=== PATIENT | female | born 1975 | race Caucasian/White ===

== ENCOUNTER 2019-11-19 22:48 | Emergency (ER) | payer OTHER, SELFPAY ==
[2019-11-19 22:52] VITALS: BP 145/88; PULSE 91; RESP 18; TEMP 36.4; O2SAT 99
--- NOTE | 2019-11-20 00:50 | ED.EYEPROB ---
HPI - Eye Problem General Chief complaint: Eye Problems Stated complaint: slept in contact eye disfomfort. Time Seen by Provider: 11/20/19 00:18 Source: patient Mode of arrival: ambulatory Limitations: no limitations History of Present Illness HPI Narrative: This patient is a 44 year old female who presents for evaluation of left eye irritation. She states she wears disposable contacts and she fell asleep in her contacts on night. On Thursday she states her eye felt gritty at first so she took them out. She wore her contacts again later on Thursday and she slept in them again. She reports her left eye today is red and it feels more irritated. she denies eye pain or blurred vision. Her tetanus is up to date. Related Data Home Medications Medication Instructions Recorded Confirmed lansoprazole 15 mg capsule,delayed 15 mg PO DAILY 02/07/19 release Allergies Allergy/AdvReac Type Severity Reaction Status Date / Time shellfish derived Allergy Unknown Unknown Verified 11/19/19 22:54 [place] [facility] SWELLING, Uncoded 07/28/19 09:46 DIARRHEA, ABD PAIN [place] [facility] ABD PAIN, Uncoded 07/28/19 09:46 NAUSEA/VOMITING NKDA Allergy Unknown Uncoded 11/19/19 22:54 Review of Systems Review of Systems: All systems reviewed & are unremarkable except as noted in HPI and below Constitutional: Constitutional: Denies chills and Denies fever(s) PMFSH Past Medical History Medical History Anemia Arthritis Bronchitis Chronic anemia Chronic migraine Elevated liver enzymes Epistaxis GERD (gastroesophageal reflux disease) GI bleed Hiatal hernia Hx of psoriasis Hypothyroid IBS (irritable bowel syndrome) depression Rectal polyp Seasonal allergies Spontaneous Toe fracture Ulcer Surgical History Surgical History H/O dilation and curettage History of hysterectomy Hx of section x5 Hx of cholecystectomy Family History Family History (Updated 09/10/16 @ 09:00 by DOCTOR UNKNOWN) Mother Family history of thyroid disease Family history of chronic obstructive pulmonary disease Family history of emphysema Father Family history of mental disorder Family history of epilepsy Hypertension Family history of diabetes mellitus in first degree relative Diabetes mellitus Grandparent Hypertension, Onset Age: 82 Diabetes mellitus Social History Social History (Updated 03/03/19 @ 01:28 by Ayala Liriano) Smoking status: Never smoker Second hand tobacco smoke exposure: Yes Alcohol intake: current Gender identity (if verbalized by the patient): Female Exam Const: General: no acute distress and alert Orientation/consciousness: patient oriented x3 HENMT: Head: normocephalic and atraumatic Face and sinus: face symmetric Eyes: Conjunctivae: conjunctival abnormality left conjunctival injection Cornea: corneas abnormal and fluorescein used (small punctate areas of uptake periphery of cornea.) Pupils: Equal, round and reactive pupils present EOM: EOMs intact bilaterally and EOM abnormal Direct Ophthalmoscopy: no photophobia Neck: Neck: normal visual inspection Resp: Effort & Inspection: normal respiratory effort Skin: Rashes: no rashes Neuro: General: patient oriented x3 and moves all extremities Course Vital Signs Vital signs: Vital Signs Temperature 97.6 F 11/19/19 22:52 Pulse Rate 91 11/19/19 22:52 Respiratory Rate 18 11/19/19 22:52 Blood Pressure 145/88 H 11/19/19 22:52 Pulse Oximetry 99 11/19/19 22:52 Temperature 98.6 F 11/20/19 01:08 Pulse Rate 87 11/20/19 01:08 Respiratory Rate 16 11/20/19 01:08 Blood Pressure 141/89 H 11/20/19 01:08 Pulse Oximetry 98 11/20/19 01:08 Discharge Plan Discharge Clinical Impression: Corneal abrasion of left eye
[2019-11-20 01:08] VITALS: BP 141/89; PULSE 87; RESP 16; TEMP 37; O2SAT 98
== END 2019-11-20 01:09 | disposition home or self-care (01) ==
PROVIDERS: Emergency Provider General Practice; PCP Internal Medicine
DX: H18.822 Corneal disorder due to contact lens, left eye (principal); M19.90 Unspecified osteoarthritis, unspecified site; K21.9 Gastro-esophageal reflux disease without esophagitis; E03.9 Hypothyroidism, unspecified; Z86.2 Personal history of diseases of the blood and blood-forming organs and certain disorders involving the immune mechanism
CPT/HCPCS: 99283; A9270

== ENCOUNTER 2021-08-21 10:11 | Outpatient (CLI) | payer OTHER, SELFPAY ==
[2021-08-21 20:19] LABS: Eosinophils Absolute Auto 0.1 K/mm3 (0-0.3); Hematocrit 39.8 % (37.0-47.0); Hemoglobin 11.7 g/dL (12.0-15.0); Immature Granulocyte Absolute 0.01 K/mm3 (0.00-0.031); Immature Granulocyte Percent A 0.2 % (0-0.5); Lymphocytes Absolute Auto 1.06 K/mm3 (0.9-3.2); Lymphocytes Percent Auto 25.9 % (18.3-44.2); Mean Corpuscular HGB Conc 29.4 g/dl (32-36); Mean Corpuscular Hemoglobin 26.4 pg (26-34); Mean Corpuscular Volume 89.8 fl (80-100); Mean Platelet Volume 9.3 fl (7.4-10.4); Monocytes Absolute Auto 0.2 K/mm3 (0.1-0.6); Monocytes Percent Auto 5.9 % (2.6-8.5); Neutrophils Absolute Auto 2.7 K/mm3 (1.3-6.7); Platelet Count Result 206 k/mm3 (150-375); Red Blood Count 4.43 M/mm3 (4.2-5.4); Red Cell Distribution Width 17.4 % (11.5-14.5); White Blood Count 4.1 K/mm3 (4.5-10.0)
[2021-08-21 20:23] LABS: Iron 61 ug/dL (37-170)
[2021-08-21 20:27] LABS: Alanine Aminotransferase 20 U/L (6-35); Albumin Level 4.3 g/dL (3.5-5.1); Alkaline Phosphatase 147 U/L (38-126); Anion Gap 6 mmol/L (8-16); Aspartate Amino Transferase 27 U/L (14-36); Bilirubin,Total 0.7 mg/dL (0.2-1.3); Blood Urea Nitrogen 12 mg/dL (7-17); Calcium 8.8 mg/dL (8.4-10.2); Carbon Dioxide 30 mmol/L (22-30); Chloride 103 mmol/L (98-107); Cholesterol 145 mg/dL (0-200); Estimated Glomerular Filt Rate > 60; Glucose 96 mg/dL (65-110); HDL Direct 40 mg/dL; Sodium 139 mmol/L (137-145); Triglycerides 143 mg/dL (<150)
[2021-08-21 20:35] LABS: Percent Iron Saturation 16 % (20-50)
[2021-08-21 20:38] LABS: LDL Cholesterol Direct 75 mg/dL
[2021-08-21 20:40] LABS: Hypochromasia 1+ (NORMAL); Ovalocytes 1+ (NORMAL); Platelet Estimate Adequate (Adequate)
[2021-08-21 21:18] LABS: Hemoglobin A1C 4.4 % (<5.7)
[2021-08-28 00:56] LABS: ALT 18 U/L (6-29); Alpha-2-Macroglobulin 155 mg/dL (106-279); Apolipoprotein A1 144 mg/dL (101-198); Fibrosis Score 0.12; Fibrosis Stage F0; GGT 29 U/L (3-55); Haptoglobin 128 mg/dL (43-212); Necroinflammat Act Grade A0; Total Bilirubin 0.6 mg/dL (0.2-1.2)
== END 2021-08-21 10:12 | disposition home or self-care (01) ==
PROVIDERS: PCP Family Medicine; Visit Provider Family Medicine
DX: Z00.00 Encounter for general adult medical examination without abnormal findings (principal); D64.9 Anemia, unspecified; R74.8 Abnormal levels of other serum enzymes; E03.9 Hypothyroidism, unspecified; E66.01 Morbid (severe) obesity due to excess calories; K76.0 Fatty (change of) liver, not elsewhere classified
CPT/HCPCS: 36415; 80053; 80061; 81596; 82728; 83036; 83540; 83550; 84443; 85025